=== PATIENT | female | born 1945 | race Two or more races ===

== ENCOUNTER 2017-11-04 16:31 | Emergency (ER) | payer OTHER, MEDICAID ==
[~2017-11-04] VITALS: Ht 165.1 cm; Wt 92.5 kg
[2017-11-04 16:59] VITALS: BP 106/70
[2017-11-04] MEDS ORDERED: KETOROLAC TROMETH 30 MG/ML 1ML VIAL IM ONE (18:15)
== END 2017-11-04 18:32 | disposition home or self-care (01) ==
LOC: ER 16:46
DX: S16.1XXA Strain of muscle, fascia and tendon at neck level, initial encounter (principal); S46.912A Strain of unspecified muscle, fascia and tendon at shoulder and upper arm level, left arm, initial encounter; M47.892 Other spondylosis, cervical region; E11.9 Type 2 diabetes mellitus without complications; V43.62XA Car passenger injured in collision with other type car in traffic accident, initial encounter; Y93.89 Activity, other specified; Y99.8 Other external cause status; Y92.410 Unspecified street and highway as the place of occurrence of the external cause
CPT/HCPCS: 72040; 73030; 96372; 99284; J1885

== ENCOUNTER 2017-11-23 09:22 | Emergency (ER) | payer OTHER, MEDICAID ==
[~2017-11-23] VITALS: Ht 165.1 cm; Wt 94.3 kg
[2017-11-23 09:43] VITALS: BP 125/59
[2017-11-23] MEDS ORDERED: LIDOCAINE 1% (LOCAL ANESTH.) PF 5ml SDV ONE (09:55)
[2017-11-23] MEDS ORDERED: cefTRIAXone SOD 1,000 MG VL IM ONE (10:00)
[2017-11-23] MEDS ORDERED: LIDOCAINE 1% HCL (LOCAL ANESTH.) INJ 20ML MDV IJ ONE (10:00)
== END 2017-11-23 10:25 | disposition home or self-care (01) ==
LOC: ER 09:22
DX: L02.415 Cutaneous abscess of right lower limb (principal); E11.9 Type 2 diabetes mellitus without complications
CPT/HCPCS: 10060; 99283; J0696

== ENCOUNTER 2017-11-25 10:02 | Emergency (ER) | payer OTHER, MEDICAID ==
[~2017-11-25] VITALS: Ht 162.6 cm; Wt 92.1 kg
[2017-11-25 10:07] VITALS: BP 103/70
== END 2017-11-25 11:05 | disposition home or self-care (01) ==
LOC: ER 10:02
DX: L02.415 Cutaneous abscess of right lower limb (principal); E11.9 Type 2 diabetes mellitus without complications; Z48.01 Encounter for change or removal of surgical wound dressing

== ENCOUNTER 2019-05-21 07:29 | Emergency (ER) | payer OTHER, MEDICAID ==
[~2019-05-21] VITALS: Ht 162.6 cm; Wt 94.3 kg
[2019-05-21] MEDS ORDERED: FAMOTIDINE 20 MG TAB PO ONE (09:15)
[2019-05-21] MEDS ORDERED: LORATADINE 10 MG TAB PO ONE (09:15)
[2019-05-21] MEDS ORDERED: EPINEPHrine HCL 1 MG/1 ML AMP SC ONE (09:15)
[2019-05-21] MEDS ORDERED: FAMOTIDINE (10MG/ML) 2ML VL IV ONE (10:30)
[2019-05-21] MEDS ORDERED: diphenhdrAMINE HCL 50 MG/1 ML VL IV ONE (10:30)
[2019-05-21] MEDS ORDERED: methylPREDNISolone SOD SUCC 125 MG/2 ML VL IV ONE (10:30)
[2019-05-21] MEDS ORDERED: SODIUM CHLORIDE 0.9% 500 ML IV ONE (10:30)
[2019-05-21 11:02] LABS: Urine Bacteria NONE SEEN /hpf (None Seen); Urine Blood Negative /uL (Negative); Urine Hyaline Cast FEW /lpf (0 - 2); Urine Mucus FEW (None Seen); Urine WBC <1 /hpf (0 - 5)
[2019-05-21 12:28] VITALS: BP 110/43
== END 2019-05-21 14:14 | disposition home or self-care (01) ==
LOC: ER 07:32
DX: T78.3XXA Angioneurotic edema, initial encounter (principal); R06.02 Shortness of breath; E11.9 Type 2 diabetes mellitus without complications
CPT/HCPCS: 81001; 96372; 96374; 96375; 99283; J0171; J1200; J2930; J3490; J7040

== ENCOUNTER → 2019-05-21 | Emergency (ER) | payer OTHER, MEDICAID | END | disposition left against medical advice (07) | LOC: ER 00:47 | DX: R21 Rash and other nonspecific skin eruption (principal); Z53.21 Procedure and treatment not carried out due to patient leaving prior to being seen by health care provider ==